=== PATIENT | female | born 1970 | race Caucasian/White ===

== ENCOUNTER → 2022-02-28 | Outpatient (CLI) | payer SELFPAY ==
[~2022-02-28] MED LIST: ASPIRIN 32325 MG/TAB PO; ATIVAN 0.50.5 MG/TAB PO; CREON 60000 U-11 ECC PO; KLONOPIN WAFER0.5 MG PO; LOPID 600M600 MG/TAB PO; LOPRESSOR 225 MG/TAB PO; PLAVIX 75MG TAB75 MG PO; PRILOTC PO; THIAMINE 1100 MG/TAB PO; TOPROL XL 25MG25 MG PO; ULTRAM 50MG TAB50 MG PO; ZOCOR 80MG80 MG PO; [UNRECOGNIZED DRUG - OTHER] PO
== END ==
LOC: COL.CARD 10:45
DX: Z01.810 Encounter for preprocedural cardiovascular examination (principal)

== ENCOUNTER → 2022-05-04 | Outpatient (CLI) | payer SELFPAY ==
[~2022-05-04] VITALS: Ht 157.5 cm; Wt 71.0 kg
[~2022-05-04] MED LIST changes: +MIRALAX PA17 GM/Dose PO; +MOTRIN 400400 MG/TAB PO; +PROTONIX 40MG T40 MG PO; +TYLENOL 325MG325 MG PO
[2022-05-04 10:48] VITALS: BP 127/84; PULSE 72; TEMP 98.2
[2022-05-04 13:44] VITALS: BP 136/85; PULSE 70
[2022-05-04 13:45] VITALS: BP 143/87; BP 153/86; PULSE 117; PULSE 120
[2022-05-04 13:46] VITALS: BP 153/86; PULSE 117; PULSE 120
[2022-05-04 13:47] VITALS: BP 153/86; PULSE 112
== END ==
LOC: COL.CARD 10:12
DX: R07.9 Chest pain, unspecified (principal)
CPT/HCPCS: A9500; J2785

== ENCOUNTER 2022-05-26 07:55 | Day surgery (SDC) | payer SELFPAY ==
[~2022-05-26] VITALS: Ht 157.5 cm; Wt 69.5 kg
[2022-05-26] MEDS ORDERED: LIPITOR 40MG TA40 MG PO (09:07)
[2022-05-26 09:25] VITALS: BP 122/71; PULSE 94; TEMP 97.2
[2022-05-26 09:40] VITALS: BP 116/73; PULSE 84
[2022-05-26 09:55] VITALS: BP 127/81; PULSE 80
--- NOTE | 2022-05-26 10:15 | NUR ---
0925 RETURNS TO ROOM 7 FOLLOWING PROCEDURE. PATIENT AMBULATES FROM CART TO RECLINER WITH STAND BY ASSIST. SEATED, WITH FEET ELEVATED. MONITOR ATTACHED, VITAL SIGNS OBTAINED. DENIES NAUSEA OR ABD PAIN. 0950 TOLERATES PO JUICE AND MUFFIN WITHOUT NAUSEA. 1000 DISCHARGE INSTRUCTIONS REVIEWED WITH PATIENT AND SIGNIFICANT OTHER VERBALIZING UNDERSTANDING. COPY OF INSTRUCTIONS PROVIDED AT DISCHARGE. 1010 STANDS AT CHAIRSIDE. DRESSES SELF
[2022-05-26 10:19] VITALS: BP 131/73; PULSE 100; TEMP 97.1
== END 2022-05-26 10:15 | disposition home or self-care (01) ==
LOC: SDCO 07:55
DX: Z12.11 Encounter for screening for malignant neoplasm of colon (principal); F17.210 Nicotine dependence, cigarettes, uncomplicated; K43.2 Incisional hernia without obstruction or gangrene; K86.1 Other chronic pancreatitis; I10 Essential (primary) hypertension; K21.9 Gastro-esophageal reflux disease without esophagitis; Z86.010 Personal history of colon polyps; Z79.899 Other long term (current) drug therapy
CPT/HCPCS: J2704; J7030